=== PATIENT | female | born 1995 | race Caucasian/White ===

== ENCOUNTER 2023-01-28 02:22 | Inpatient (IN) | payer OTHER ==
[2023-01-28] VITALS (11 sets, daily range): BP systolic 107–128; BP diastolic 54–79
[~2023-01-28] VITALS: Ht 162.6 cm; Wt 62.7 kg
[2023-01-28] MEDS ORDERED: OXYTOCIN INJ 10UNITS/ML 1ML VIAL As Ordered ONE (02:52)
[2023-01-28] MEDS ORDERED: LIDOCAINE 1% MDV 20ML VIAL As Ordered ONE (02:54)
[2023-01-28] MEDS ORDERED: OXYTOCIN 30UNITS IN 0.9% NaCl 500ML IV BAG As Ordered ONE (03:35)
[2023-01-28] MEDS ORDERED: OXYTOCIN INJ 10UNITS/ML 1ML VIAL IM PRN (03:40)
[2023-01-28] MEDS ORDERED: ACETAMINOPHEN 500 MG TAB PO PRN (03:40)
[2023-01-28] MEDS ORDERED: TRANEXAMIC ACID INJection 1,000 MG in NS 100 ML IV PRN (03:40)
[2023-01-28] MEDS ORDERED: OXYTOCIN INJ 10UNITS/ML 1ML VIAL IV PRN (03:40)
[2023-01-28] MEDS ORDERED: LIDOCAINE 1% MDV 20ML VIAL INFIL PRN (03:40)
[2023-01-28] MEDS ORDERED: OXYTOCIN DRIP 30 UNITS in IV 1 EA IV PRN ×6 (03:40)
[2023-01-28] MEDS ORDERED: METHYLERGONOVINE MALEATE 0.2MG/ML 1ML VIAL IM PRN (03:40)
[2023-01-28] MEDS ORDERED: DIBUCAINE 1% OINTMENT 30GM TOP PRN (03:40)
[2023-01-28] MEDS ORDERED: RHOGAM 300MCG (1500IU) INJ IM SCH (03:40)
[2023-01-28] MEDS ORDERED: DOCUSATE SODIUM 100MG CAPSULE PO PRN (03:40)
[2023-01-28] MEDS ORDERED: CARBOPROST TROMETHAMINE 250 MCG/ML AMP IM PRN (03:40)
[2023-01-28 03:52] LABS: CORD GAS ABE V -4.2; CORD GAS O2 SAT V 68.3 %; CORD GAS PCO2 V 34.8 mmHg; CORD GAS PH V 7.377 UNITS; CORD GAS PO2 V 26.2 mmHg; CORD GAS SBC V 20.3 MMOL/L; CORD GAS TCO2 V 21.1 MMOL/L
[2023-01-28] MEDS ORDERED: PRENTAB9 PO (03:52)
[2023-01-28 03:55] LABS: CORD GAS ABE A -3.6; CORD GAS HCO3 A 20.9 MMOL/L; CORD GAS O2 SAT A 65.7 %; CORD GAS PCO2 A 36.5 mmHg; CORD GAS PH A 7.375 UNITS; CORD GAS PO2 A 24.2 mmHg; CORD GAS SBC A 20.7 MMOL/L
[2023-01-28] MEDS ORDERED: HOME MED LIST COMPLETE! XX SCH (03:55)
[2023-01-28 04:49] LABS: HEMATOCRIT 34.1 % (36.0-47.0); HEMOGLOBIN 11.2 g/dl (12.0-15.5); MEAN CORPUSCULAR HEMOGLOBIN 28.2 pg (27.0-33.0); MEAN CORPUSCULAR HGB CONC 32.8 g/dl (32.0-36.5); MEAN CORPUSCULAR VOLUME 85.9 fl (80.0-96.0); PLATELET COUNT, AUTOMATED 196 10^3/uL (150-450); RED BLOOD COUNT 3.97 10^6/uL (4.00-5.40); WHITE BLOOD COUNT 10.4 10^3/uL (4.0-10.0)
[2023-01-28] MEDS: IBUPROFEN 800 MG TAB PO PRN ×3 (04:55→23:46)
[2023-01-28] MEDS: PRENATAL VITAMINS CHEWABLE TABLET PO SCH (09:14)
[2023-01-29 06:03] VITALS: BP 94/51
[2023-01-29] MEDS: PRENATAL VITAMINS CHEWABLE TABLET PO SCH (09:15)
[2023-01-29] MEDS ORDERED: ACET-683 PO (09:45)
[2023-01-29] MEDS ORDERED: IBUP80TA PO (09:45)
[2023-01-29] MEDS ORDERED: COLA100C5 PO (09:45)
[2023-01-29] MEDS: IBUPROFEN 800 MG TAB PO PRN (13:26)
[2023-01-30] MEDS ORDERED: MEASLES,MUMPS,RUBELLA VACCINE INJ (MMR-II) SC.IMMUN ONE (09:00)
== END 2023-01-29 15:50 | disposition home or self-care (01) | DRG 807 ==
LOC: M LDO 02:22 → M LDI 02:55 → M OBS 06:25
PROVIDERS: ADMIT Obstetrics & Gynecology; ATTEND Obstetrics & Gynecology
PROC: 10E0XZZ Delivery of Products of Conception, External Approach (ICD-10-PCS; principal; 2023-01-28)
PROC: 0KQM0ZZ Repair Perineum Muscle, Open Approach (ICD-10-PCS; 2023-01-28)
PROC: 0U9G3ZZ Drainage of Vagina, Percutaneous Approach (ICD-10-PCS; 2023-01-28)
DX: O62.3 Precipitate labor (principal); Z37.0 Single live birth; Z3A.38 38 weeks gestation of pregnancy; O69.81X0 Labor and delivery complicated by cord around neck, without compression, not applicable or unspecified; O70.1 Second degree perineal laceration during delivery; N75.0 Cyst of Bartholin's gland

== ENCOUNTER → 2024-06-05 | Outpatient (CLI) | payer OTHER ==
[~2024-06-05] MED LIST: ACET-683 PO; COLA100C5 PO; IBUP80TA PO; PRENTAB9 PO
== END ==
LOC: M WHC 07:41
PROVIDERS: ATTEND Family Medicine
DX: N63.20 Unspecified lump in the left breast, unspecified quadrant (principal)